=== PATIENT | female | born 1955 | race Caucasian/White ===

== ENCOUNTER → 2016-11-12 | Outpatient (CLI) | payer BC ==
--- NOTE | 2016-11-12 15:30 | MAM ---
EXAM DESCRIPTION: MAMMO BREAST SCREENING BILATERAL CAD, images were reviewed with CAD technology, R2 computer-aided detection. CLINICAL HISTORY: [facility]. COMPARISON: 2013. FINDINGS: Routine views are obtained. Scattered glandular pattern with increased mammographic density and slight nodularity. no dominant mass, architectural distortion or clustered microcalcification. IMPRESSION: Benign exam. BIRAD CATEGORY: 2 BENIGN RECOMMENDATIONS: FOLLOW-UP: Routine screening mammogram in one year. According to the [employer], yearly mammograms are recommended starting at age 40 and continuing as long as a woman is in good health. Any breast change noted on a breast self-exam should be reported promptly to the patient's healthcare provider. Breast MRI is recommended for women with an approximately 20-25% or greater lifetime risk of breast cancer, including women with a strong family history of breast or ovarian cancer and women who have been treated for Hodgkin's disease. Electronically signed by: Melody Fernandez 11/12/2016 15:28
== END ==
LOC: RAD 11:00
PROVIDERS: ATTEND Obstetrics & Gynecology Gynecology
DX: Z12.31 Encounter for screening mammogram for malignant neoplasm of breast (principal)

== ENCOUNTER → 2016-11-12 | Outpatient (CLI) | payer BC | LOC: GMAB 15:09 | PROVIDERS: ATTEND Family Medicine | DX: Z00.00 Encounter for general adult medical examination without abnormal findings (principal) ==

== ENCOUNTER → 2016-12-29 | Outpatient (CLI) | payer BC | LOC: GMAB 11:30 | PROVIDERS: ATTEND Family Medicine | DX: E83.52 Hypercalcemia (principal) ==

== ENCOUNTER 2016-12-30 05:50 | Day surgery (SDC) | payer BC ==
[2016-12-30] MEDS ORDERED: LACTATED RINGERS 1,000 ML ONE (06:23)
[2016-12-30] MEDS ORDERED: PROPOFOL 200 MG/20 ML VIAL IV ONE (07:00)
--- NOTE | 2016-12-30 09:43 | OP ---
DATE OF PROCEDURE: 12/30/16 PREOPERATIVE DIAGNOSIS: 1. Iron deficiency anemia. 2. Guaiac-positive stool. POSTOPERATIVE DIAGNOSIS: 1. Diverticulosis. PROCEDURE: 1. EGD plus biopsy. 2. Colonoscopy. SURGEON: Fred Flores MD. COMPLICATIONS: None apparent. BLOOD LOSS: None. MEDICATIONS: Monitored anesthesia care. DESCRIPTION OF PROCEDURE: Informed consent was obtained prior to sedation. The preprocedure cardiopulmonary assessment was satisfactory. The patient was placed in the left lateral decubitus position and was sedated. The tip of the Olympus esophagogastroduodenoscope was inserted in the oropharynx and carefully advanced through the cricopharyngeus into the esophageal lumen. The esophagus was unremarkable without any evidence of esophagitis or other possible bleeding source. The stomach was examined carefully with direct and retroflexed views. The antrum, body, fundus, cardia and incisura were closely examined. There was no evidence of bleeding source seen in the stomach. The duodenum was examined down to the third portion. Endoscopically, it was unremarkable. Biopsies were obtained in the duodenum to rule out celiac sprue. The scope was then removed from the patient. The patient was rotated 180 degrees. A digital rectal exam was performed and was unremarkable. The tip of the Olympus colonoscope was inserted in the rectum and carefully guided over to the cecum. The patient's colon is long and tortuous and required abdominal pressure along with reducing loops. The cecum was identified by locating the ileocecal valve and appendiceal orifice. Prep was good. The mucosa of the cecum, ascending colon, hepatic flexure, transverse colon, splenic flexure, descending colon and sigmoid colon was closely examined. Direct and retroflexed views of the rectum were obtained. The patient has sigmoid diverticulosis. I did not see any potential bleeding sources in the colon. The procedure was then terminated. RECOMMENDATIONS: 1. There was no source of occult bleeding seen on EGD or colonoscopy. Because of her finding of guaiac-positive stool and her iron deficiency anemia, she needs a capsule endoscopy to make sure there is no significant bleeding source in the small intestine. 2. For colon cancer screening, she needs a colonoscopy in ten years. #[id number] cc: Bandar Reyes MD [facility]
[2016-12-30 10:36] VITALS: BP 145/80; TEMP 97.5; O2SAT 100
== END 2016-12-30 10:25 | disposition home or self-care (01) ==
LOC: AMB 05:50
PROVIDERS: ATTEND Internal Medicine Gastroenterology
DX: K92.1 Melena (principal); D50.9 Iron deficiency anemia, unspecified; K57.30 Diverticulosis of large intestine without perforation or abscess without bleeding; I10 Essential (primary) hypertension; Z79.899 Other long term (current) drug therapy

== ENCOUNTER → 2017-01-05 | Outpatient (CLI) | payer BC | END | disposition home or self-care (01) | LOC: GMAB 14:34 | PROVIDERS: ATTEND Family Medicine | DX: E83.52 Hypercalcemia (principal) ==

== ENCOUNTER → 2017-11-30 | Outpatient (CLI) | payer BC, OTHER ==
--- NOTE | 2017-12-01 11:51 | MAM ---
EXAM DESCRIPTION: 3D Screening BILATERAL : Digital Mammography. CLINICAL HISTORY: 62 years Female SCREENING . No complaints. Remote family history of breast cancer. Postmenopausal. Taking HRT less than 5 years ago. Left breast biopsy. Followed by lumpectomy. COMPARISON: 2-D digital screening bilateral study 11/12/2016 and diagnostic left breast mammography 07/20/2015.. Report from prior examination also reviewed. TECHNIQUE: Bilateral CC and MLO projection full-field images, 3-D tomosynthesis digital mammographic technique. Also bilateral synthesized CC/ MLO full-field images. CAD not utilized. FINDINGS: The breast parenchymal density pattern is: Heterogeneously dense breast tissue, which may obscure small masses. No skin thickening or nipple retraction bilateral solitary microcalcifications. Bilateral stable nodular densities which are interpreted to be intramammary lymph nodes. Bilateral small solitary calcifications. Stable minimal architectural distortion in the left breast at the site of prior biopsy. No focal, stellate mass or density, focal asymmetry , and no suspicious microcalcifications bilaterally. Stable mammograms compared to prior study, taking into account differences in mammographic technique IMPRESSION: BI-RADS CATEGORY: 2 - BENIGN FINDINGS. FOLLOW UP: Routine digital bilateral screening, one year interval from November 2017. Written communication explaining the IMPRESSION and follow-up, will be mailed to the patient and referring health care provider. According to the [employer], yearly mammograms are recommended starting at age 40 and continuing as long as a woman is in good health. Any breast change noted on a breast self-exam should be reported promptly to the patient's healthcare provider. Breast MRI is recommended for women with an approximately 20-25% or greater lifetime risk of breast cancer, including women with a strong family history of breast or ovarian cancer and women who have been treated for Hodgkin's disease. A negative mammographic report should not delay tissue diagnosis in patients with significant clinical history or physical findings. Extremely dense breast tissue limits the sensitivity of digital mammography. Electronically signed by: Tutu Walker MD 12/01/2017 11:50 AM MANAGER OF HOSPITAL
== END ==
LOC: MAMMO 15:57
PROVIDERS: ATTEND Family Medicine
DX: Z12.31 Encounter for screening mammogram for malignant neoplasm of breast (principal)

== ENCOUNTER → 2018-01-17 | Outpatient (CLI) | payer OTHER | END | disposition home or self-care (01) | LOC: GMAB 18:07 | PROVIDERS: ATTEND Family Medicine | DX: D50.9 Iron deficiency anemia, unspecified (principal); Z00.00 Encounter for general adult medical examination without abnormal findings ==

== ENCOUNTER → 2018-01-25 | Outpatient (CLI) | payer OTHER | LOC: GMAB 09:29 | PROVIDERS: ATTEND Family Medicine | DX: E83.52 Hypercalcemia (principal) ==

== ENCOUNTER → 2018-11-30 | Outpatient (CLI) | payer OTHER ==
--- NOTE | 2018-12-01 12:13 | MAM ---
EXAM DESCRIPTION: 3D Screening BILATERAL : Digital Mammography. CLINICAL HISTORY: 63 years Female SCREENING . No complaints. No personal history of breast cancer. Remote family history of breast cancer. Childbirth. Postmenopausal 14 years. HRT less than 5 years ago. Prior left breast benign biopsy. Lifetime risk of developing breast cancer (Tyrer-Cuzick model)(%): Not calculated COMPARISON: Bilateral screening digital breast tomosynthesis 12/28/2017. TECHNIQUE: Bilateral CC and MLO projection full-field images, digital tomosynthesis mammographic technique. Bilateral digital 2-D full-field MLO images. CAD not available for tomosynthesis or 2-D images. FINDINGS: The breast parenchymal density pattern is: Heterogeneously dense breast tissue, which may obscure small masses. No skin thickening or nipple retraction. Bilateral axillary lymph nodes. Small circumscribed mass density in the lateral mid third of the right breast stable since the prior study. Bilateral solitary microcalcifications. No new focal, stellate mass or density, focal asymmetry , and no suspicious microcalcifications bilaterally. Stable mammograms compared to prior study. IMPRESSION: Benign exam. BIRAD CATEGORY: 2 BENIGN FINDINGS. RECOMMENDATIONS: FOLLOW UP: Routine digital bilateral mammographic screening, one year interval from November 2018. Written communication explaining the IMPRESSION and follow-up, will be mailed to the patient and referring health care provider. According to the [employer], yearly mammograms are recommended starting at age 40 and continuing as long as a woman is in good health. Any breast change noted on a breast self-exam should be reported promptly to the patient's healthcare provider. Breast MRI is recommended for women with an approximately 20-25% or greater lifetime risk of breast cancer, including women with a strong family history of breast or ovarian cancer and women who have been treated for Hodgkin's disease. A negative mammographic report should not delay tissue diagnosis in patients with significant clinical history or physical findings. Extremely dense breast tissue limits the sensitivity of digital mammography. Electronically signed by: Tutu Walker MD 12/01/2018 12:10 PM PHYSICIAN SCIENTIST
== END ==
LOC: MAMMO 16:00
PROVIDERS: ATTEND Obstetrics & Gynecology Gynecology
DX: Z12.31 Encounter for screening mammogram for malignant neoplasm of breast (principal)

== ENCOUNTER → 2019-01-02 | Outpatient (CLI) | payer OTHER | LOC: GMAE 17:53 | PROVIDERS: ATTEND Family Medicine | DX: M25.541 Pain in joints of right hand (principal); M25.542 Pain in joints of left hand ==

== ENCOUNTER → 2019-08-31 | Outpatient (CLI) | payer OTHER ==
--- NOTE | 2019-09-01 14:24 | US ---
EXAM DESCRIPTION: Soft Tissue,Extremity: ULTRASOUND. CLINICAL HISTORY: 63 years Female PAIN IN RIGHT ARM COMPARISON: None Available. TECHNIQUE: Transcutaneous scanning: Valle-scale and Doppler modes. FINDINGS: Scanning of the right proximal forearm in the region of a palpable lump. Partially defined hypoechoic and hyperechoic tissue in the subcutaneous adipose layer measuring approximately 7.4 x 6.5 x 3.5 mm. Most likely a resolving hematoma. No dominant solid mass. No distinct cyst. No large calcifications. IMPRESSION: Subcutaneous resolving hematoma proximal right forearm. Electronically signed by: Tutu Walker MD 09/01/2019 2:23 PM [facility] [[email or web address]]
== END ==
LOC: US 14:15
PROVIDERS: ATTEND Family Medicine
DX: S50.11XA Contusion of right forearm, initial encounter (principal)

== ENCOUNTER → 2019-09-18 | Outpatient (CLI) | payer OTHER ==
--- NOTE | 2019-09-18 16:22 | MRI ---
EXAM DESCRIPTION: Lumbar Spine w/o Contrast CLINICAL HISTORY: RADICULOPATHY COMPARISON: None Available. TECHNIQUE: MRI of the lumbar spine is performed according to our usual protocol with axial and sagittal multi sequence imaging. FINDINGS: Sagittal T2 images reveal decreased signal intensity consistent with desiccation of the intervertebral discs at all lumbar levels. L5 appears transitional. Posterior annular bulges are most prominent at L1-2 through L4-5. No prevertebral mass or aneurysm. Lower cord and conus appear normal. Tip of the conus is behind lower T12. 3 mm degenerative anterolisthesis of L4 and L5 with 2 to 3 mm degenerative retrolisthesis of L1 on L2 and L2 on L3. Sagittal T1 images reveal benign marrow signal characteristics. Normal T1 signal intensity and appearance of the lower cord and conus. Sagittal STIR images are negative for marrow edema within the vertebral bodies or posterior elements. No paraspinous fluid collection or cystic lesion. Axial T1 and T2-weighted images were obtained to evaluate the disc levels. T12-L1: No posterior annular bulge or herniation. No spinal stenosis or neural foraminal narrowing. [id number] facet hypertrophy. Normal appearance of the lower cord and conus. L1-2: Moderate diffuse posterior annular bulge without spinal stenosis. Mild bilateral neural foraminal narrowing. Marked facet hypertrophy with ligamentum flavum thickening moderately narrowing subarticular recesses. L2-3: Moderate posterior annular bulge with bilateral lateral accentuation. No significant spinal stenosis. Neural foraminal narrowing there is mild on the right and moderate on the left. Advanced facet hypertrophic changes with increased fluid in the facet joints and ligamentum flavum thickening. Moderately severe bilateral subarticular recess narrowing with medial displacement of descending nerve roots but no nerve root compression. L3-4: Moderately severe diffuse posterior annular bulge is seen with moderate spinal stenosis. AP diameter of the spinal canal is approximately 1.1 cm. Mediolateral width of the canal is narrowed to 4 mm by marked facet hypertrophic spurring and ligamentum flavum thickening. Severe bilateral facet spurring with severe narrowing of left more than right subarticular recesses impinging upon the descending L4 nerve roots. Severe left and moderate right neural foraminal narrowing. L4-5: Mild anterolisthesis and diffuse posterior annular bulge narrow AP diameter of the spinal canal to 9 mm. Marked facet hypertrophic spurring is seen with marked ligamentum flavum thickening severely narrowing right more than left subarticular recesses impinging upon the descending L5 nerve roots. Severe left and moderately severe right neural foraminal narrowing is seen impinging upon exiting left more than right L4 nerve roots. L5-S1: No posterior annular bulge or herniation at this transitional disc level. No spinal stenosis or neural foraminal narrowing. Facets appear normal. Upper sacrum appears intact. No retroperitoneal mass or aneurysm. IMPRESSION: Moderate multifactorial spinal stenosis at L3-4 with severe left neural foraminal and subarticular recess compromise. Moderate posterior annular bulges with marked facet hypertrophic spurring at other levels as described. Severe neural foraminal and subarticular recess narrowing at L4-5. Electronically signed by: Jhon Latham MD 09/18/2019 4:20 PM [facility]
== END ==
LOC: MRI 13:50
PROVIDERS: ATTEND Family Medicine
DX: M51.16 Intervertebral disc disorders with radiculopathy, lumbar region (principal); M48.062 Spinal stenosis, lumbar region with neurogenic claudication

== ENCOUNTER → 2019-12-04 | Outpatient (CLI) | payer OTHER ==
--- NOTE | 2019-12-05 17:18 | MAM ---
EXAM DESCRIPTION: 3D Screening BILATERAL : Digital Mammography. CLINICAL HISTORY: 64 years Female ANNUAL SCREENING . No complaints. No personal history of breast cancer. Remote family history of breast cancer. Menarche age 12. Childbirth age 15. Menopause age 49. HRT less than 5 years ago. Benign left breast biopsies. Lifetime risk of developing breast cancer (Tyrer-Cuzick model)(%): 7.3. COMPARISON: Bilateral screening digital breast tomosynthesis November 2018 and November 2017. TECHNIQUE: Bilateral CC and MLO projection full-field images, digital tomosynthesis mammographic technique. Bilateral digital 2-D full-field MLO images. CAD available for 2-D images. FINDINGS: The breast parenchymal density pattern is: Heterogeneously dense breast tissue, which may obscure small masses. No skin thickening or nipple retraction. Bilateral solitary microcalcifications. Vascular calcifications. Enlarging mass densities with mostly circumscribed margins at the 5:00 to 6:00 region of the posterior third of the left breast approximately 7 cm from the nipple. No abnormal microcalcifications.. No new focal, stellate mass or density, focal asymmetry , and no suspicious microcalcifications right breast. IMPRESSION: BI-RADS CATEGORY: 0 - INCOMPLETE- Need additional imaging evaluation. FOLLOW-UP: Recall for additional imaging: Left breast full-field 2-D and tomosynthesis images in the LM projection. Directed left breast ultrasound region of interest. Written communication concerning the IMPRESSION and Follow-up, will be mailed to the patient and referring health care provider. Electronically signed by: Tutu Walker MD 12/05/2019 5:17 PM SENIOR CASE MANAGER
== END ==
LOC: MAMMO 16:00
PROVIDERS: ATTEND Obstetrics & Gynecology Gynecology
DX: Z12.31 Encounter for screening mammogram for malignant neoplasm of breast (principal)

== ENCOUNTER → 2020-06-11 | Outpatient (CLI) | payer OTHER | LOC: GMAE 14:33 | PROVIDERS: ATTEND Family Medicine | DX: I10 Essential (primary) hypertension (principal); E78.2 Mixed hyperlipidemia ==

== ENCOUNTER → 2020-10-09 | Outpatient (CLI) | payer MEDICARE, OTHER | LOC: GMALS 17:42 | PROVIDERS: ATTEND Nurse Practitioner Acute Care | DX: M79.643 Pain in unspecified hand (principal) ==

== ENCOUNTER → 2020-11-14 | Outpatient (CLI) | payer MEDICARE, OTHER ==
--- NOTE | 2020-11-14 20:33 | US ---
EXAM DESCRIPTION: Renal Arteries: Ultrasound. CLINICAL HISTORY: ESSENTIAL (PRIMARY) HYPERTENSION COMPARISON: Two-dimensional ultrasound evaluation of the bilateral kidneys on the same visit. TECHNIQUE: Transcutaneous scanning: Grayscale mode. Doppler peak systolic and end-diastolic velocities/measurements of the abdominal aorta, renal arteries, intra renal arteries, and renal veins. FINDINGS: PSV (cm/sec): Aorta: 71 Right renal artery: 125 Left renal artery: 211 EDV (cm/sec): Right renal artery: 28 Left renal artery: 27 Renal veins: Visualized. IVC: Visualized. Intrarenal RI's: Proximal segmental Right: 0.48 Left: 0.8. Mid segmental Right: 0.66 Left: 0.67. Distal segmental Right: 0.70 Left: 0.67 Renal Aortic Ratio: Right RAR = RRA PSV/Aortic PSV = 125 /71= 1.76. Left RAR = LRA PSV/Aortic PSV = 211/71 = 2.97. End Diastolic Ratio: Right EDR = RRA EDV/RRA PSV = 28/125 = 0.22. Left EDR = LRA EDV/LRA PSV = 27/211= 0.13. Other: Negative.. IMPRESSION: 1. Bilateral renal aortic ratios are within the normal range, less than 3.5, no evidence of significant aortic stenosis. 2. Resistive indices of the bilateral segmental arteries are within the normal range for the renal parenchyma, averaging less than 0.7. Bilateral end-diastolic ratios are less than 0.25, which suggests significant renovascular parenchymal disease. This is discordant with the resistive indices parameters. Electronically signed by: Tutu Walker MD 11/14/2020 8:31 PM [facility]
== END ==
LOC: US 08:45
PROVIDERS: ATTEND Family Medicine
DX: I12.9 Hypertensive chronic kidney disease with stage 1 through stage 4 chronic kidney disease, or unspecified chronic kidney disease (principal); N18.9 Chronic kidney disease, unspecified